=== PATIENT | female | born 1995 | race Caucasian/White ===

== ENCOUNTER 2022-06-19 04:51 | Inpatient (IN) | payer OTHER ==
[~2022-06-19] VITALS: Ht 152.4 cm; Wt 54.4 kg
[2022-06-19 05:00] VITALS: BP 127/80
--- NOTE | 2022-06-19 06:01 | NUR ---
PT TO 9
--- NOTE | 2022-06-19 06:18 | NUR ---
Patient being evaluated by physician at bedside.
[2022-06-19 07:14] LABS: BASOPHILS # (AUTO) 0.1 K/uL (0.00-0.22); BASOPHILS % (AUTO) 0.9 % (0.0-2.0); EOSINOPHILS # (AUTO) 0.1 K/uL (0-0.4); EOSINOPHILS % (AUTO) 2.4 % (0.0-4.0); HEMATOCRIT 24.1 % (36-48); LYMPHOCYTES # (AUTO) 1.6 K/uL (2.5-16.5); LYMPHOCYTES % (AUTO) 27.2 % (20.5-51.1); MEAN CORPUSCULAR HEMOGLOBIN 31 pg (27-31); MEAN CORPUSCULAR HGB CONC 33 g/dL (33-37); MEAN CORPUSCULAR VOLUME 93.9 fL (80-94); MONOCYTES # (AUTO) 0.3 K/uL (0.8-1.0); MONOCYTES % (AUTO) 4.5 % (1.7-9.3); NEUTROPHILS # (AUTO) 3.7 K/uL (1.8-7.7); PLATELET COUNT (AUTO) 373 K/uL (140-450); RED BLOOD CELL COUNT(AUTO) 2.56 MIL/uL (4.20-5.40); RED CELL DISTRIBUTION WIDTH 15.9 % (11.6-13.7); WHITE BLOOD COUNT (AUTO) 5.7 K/uL (4.8-10.8)
--- NOTE | 2022-06-19 07:15 | NUR ---
Report recived from September, for transfer of care.
[2022-06-19 07:39] LABS: ALBUMIN 3.2 g/dL (3.4-5.0); CARBON DIOXIDE 25.6 mmol/L (21-32); CREATININE 0.5 mg/dL (0.6-1.3); POTASSIUM 3.6 mmol/L (3.5-5.1); TOTAL BILIRUBIN 0.2 mg/dL (0.0-1.0)
[2022-06-19 08:00] VITALS: BP 120/64
--- NOTE | 2022-06-19 08:00 | NUR ---
26 y/o female referred from Dr. Foster's office for evaluation. Per patient, has been having vaginal bleeding and cramping x 1 month. Patient [place] [facility] [place] with an . Patient saw Dr. Foster on 06/18/22 and was refered to ER. LMP 03/26/22 Medical History: Denies NKDA
[2022-06-19] MEDS ORDERED: FERR325E14 PO (08:26)
--- NOTE | 2022-06-19 08:26 | NUR ---
med rec complete
--- NOTE | 2022-06-19 08:30 | NUR ---
26F presents to ED with c/o vaginal bleeding [id number]. Pt reports being referred by Dr. Foster for evaluation. Pt reports being seen at [place] for same complaint on 06/16. Pt reports a constant, cramping like, 4/10 pelvic pain. Pt denies N/V/D, fevers, chills, dizziness or weakness upon assessment.
[2022-06-19 08:55] LABS: APPEARANCE,URINE CLEAR (CLEAR); BILIRUBIN,URINE NEGATIVE (NEGATIVE); BLOOD, URINE 3+ (NEGATIVE); COLOR,URINE YELLOW (YELLOW); LEUKOCYTE ESTERASE ,URINE NEGATIVE (NEGATIVE); NITRITE, URINE NEGATIVE (NEGATIVE); UGLUCOSE NEGATIVE (NEGATIVE)
[2022-06-19] MEDS ORDERED: MISOPROSTOL 200 MCG TAB ONE (09:08)
--- NOTE | 2022-06-19 09:12 | NUR ---
PT SWABBED FOR COVID AND SENT TO LAB
[2022-06-19 09:14] LABS: OTHER CASTS, URINE None Seen /LPF (None Seen); RBC,URINE 11-20 (MOD) /HPF (0-5); WBC,URINE 0-5 /HPF (0-5)
[2022-06-19 09:55] LABS: PROTHROMBIN TIME 10.6 secs (10.8-13.4)
--- NOTE | 2022-06-19 10:00 | NUR ---
Patient will be admitted to care of Dr. Rolle. Admited to Med-Surg. Will go to OR. Belongings list completed. Patient taken by OR nurse to surgery.
--- NOTE | 2022-06-19 10:06 | NUR ---
The patient's care was reviewed and supervised by [facility], RN.
[2022-06-19] MEDS ORDERED: SEVOFLURANE 250 ML BTL INH ONE (10:09)
[2022-06-19] MEDS ORDERED: fentaNYL citrate 0.05 MG/ML VIAL ONE (10:14)
[2022-06-19] MEDS ORDERED: METOCLOPRAMIDE 10 MG/2 ML INJ VIAL ONE (10:43)
[2022-06-19] MEDS ORDERED: KETOROLAC 30 MG/ML VIAL ONE (10:43)
[2022-06-19] MEDS ORDERED: ONDANSETRON 4 MG/2 ML VIAL ONE (10:43)
[2022-06-19] MEDS ORDERED: DEXAMETHASONE 4 MG/ML VIAL ONE ×2 (10:43)
[2022-06-19] MEDS ORDERED: PROPOFOL 200 MG/20 ML VIAL IV ONE ×2 (10:43→10:44)
[2022-06-19] MEDS ORDERED: OXYTOCIN 10 UNITS/ML VIAL ONE ×2 (10:44)
[2022-06-19] MEDS ORDERED: LABETALOL 20 MG/4 ML VIAL IVP PRN (11:03)
[2022-06-19] MEDS ORDERED: hydrALAZINE 20 MG/ML VIAL IVP PRN (11:04)
[2022-06-19] MEDS ORDERED: ONDANSETRON 4 MG/2 ML VIAL IVP PRN (11:05)
[2022-06-19] MEDS ORDERED: LACTATED RINGERS 1,000 ML IV SCH (11:05)
[2022-06-19] MEDS: HYDROmorphone 1 MG/ML AMP IVP PRN ×2 (11:06→11:12)
[2022-06-19] MEDS ORDERED: HYDROmorphone PFS 2 MG/ML SYR ONE (11:09)
== END 2022-06-19 12:49 | disposition home or self-care (01) | DRG 770 ==
LOC: MED 04:51 → MTU 08:19
PROVIDERS: ADMIT Obstetrics & Gynecology; ATTEND Obstetrics & Gynecology
PROC: 10D17ZZ Extraction of Products of Conception, Retained, Via Natural or Artificial Opening (ICD-10-PCS; principal; 2022-06-19 09:30)
DX: O03.4 Incomplete spontaneous abortion without complication (principal); Z20.822 Contact with and (suspected) exposure to COVID-19
CPT/HCPCS: 36415; 80053; 81001; 84702; 85025; 85610; 85730; 86900; 86901; 99285; J0360; J1100; J1170; J1885; J2405; J2590; J2704; J2765; J3010; J7030

== ENCOUNTER 2022-06-22 13:02 | Emergency (ER) | payer OTHER ==
[~2022-06-22] VITALS: Ht 152.4 cm; Wt 55.8 kg
[~2022-06-22 13:02] MED LIST: FERR325E14 PO
[2022-06-22 13:30] VITALS: BP 111/74
--- NOTE | 2022-06-22 14:59 | NUR ---
PT AMBULATED TO BED 6
--- NOTE | 2022-06-22 15:18 | NUR ---
MD BAILEY AT BEDSIDE FOR EVALUATION
[2022-06-22 15:19] VITALS: BP 122/75
--- NOTE | 2022-06-22 15:20 | NUR ---
26YO FEMALE PT C/O DIZZINESS AND NAUSEA XTODAY. REPORTS <1MIN CHEST PAIN EPISODE AND SOB. STATES HAVING DILATION AND CURETAGE PROCEURE ON 05/20. NOTES MILD VAGINAL BLEEDING AND PELVIC PAIN. DENIES V/D, FEVER , CHILLS OR VAGINAL PAIN. PT AAOX4, AMBULATORY W/ STEADY GAIT . ON [employer]. HX:ANEMIA NKA
--- NOTE | 2022-06-22 15:30 | NUR ---
/ PRESENTS TO ED WITH C/O DIZZINESS AND NAUSEA SINCE THIS MORNING. PATIENT REPORTS HAVING A D&C ONE MONTH AGO, REPORTS VAGINAL BLEEDING AND PELVIC PAIN. PATIENT DENIES V/D, FEVERS.
[2022-06-22 15:39] LABS: BASOPHILS # (AUTO) 0.1 K/uL (0.00-0.22); BASOPHILS % (AUTO) 0.8 % (0.0-2.0); EOSINOPHILS # (AUTO) 0.3 K/uL (0-0.4); EOSINOPHILS % (AUTO) 3.1 % (0.0-4.0); HEMATOCRIT 28.1 % (36-48); HEMOGLOBIN 9.5 g/dL (12.0-16.0); LYMPHOCYTES # (AUTO) 1.8 K/uL (2.5-16.5); LYMPHOCYTES % (AUTO) 21.8 % (20.5-51.1); MEAN CORPUSCULAR HEMOGLOBIN 32 pg (27-31); MEAN CORPUSCULAR HGB CONC 34 g/dL (33-37); MEAN CORPUSCULAR VOLUME 93.9 fL (80-94); MONOCYTES # (AUTO) 0.6 K/uL (0.8-1.0); MONOCYTES % (AUTO) 7.7 % (1.7-9.3); NEUTROPHILS # (AUTO) 5.4 K/uL (1.8-7.7); NEUTROPHILS % (AUTO) 66.6 % (42.2-75.2); PLATELET COUNT (AUTO) 430 K/uL (140-450); RED BLOOD CELL COUNT(AUTO) 2.99 MIL/uL (4.20-5.40); RED CELL DISTRIBUTION WIDTH 14.7 % (11.6-13.7); WHITE BLOOD COUNT (AUTO) 8.1 K/uL (4.8-10.8)
[2022-06-22 15:52] LABS: ANION GAP 16.2 (8-16); CARBON DIOXIDE 25.6 mmol/L (21-32); CREATININE 0.5 mg/dL (0.6-1.3); POTASSIUM 3.8 mmol/L (3.5-5.1)
--- NOTE | 2022-06-22 16:09 | NUR ---
Patient discharged with v/s stable. Written and verbal after care instructions ANEMIA given and explained. Patient verbalized understanding. Ambulatory with steady gait. All questions addressed prior to discharge. Advised to follow up with PMD.
--- NOTE | 2022-06-22 16:16 | NUR ---
The patient's care was reviewed and supervised by Bethanie Melo RN.
== END 2022-06-22 16:09 | disposition home or self-care (01) ==
LOC: MED 13:02
DX: D64.9 Anemia, unspecified (principal); R42 Dizziness and giddiness; R06.02 Shortness of breath
CPT/HCPCS: 36415; 80048; 85025; 86886; 86900; 86901; 93005; 99284